=== PATIENT | male | born 1970 | race Caucasian/White ===

== ENCOUNTER 2016-05-12 23:40 | Emergency (ER) | payer OTHER ==
[2016-05-12 23:47] VITALS: BMI 41.4
--- NOTE | 2016-05-13 00:33 | DIRPT ---
CLINICAL DATA: Acute onset of congestion and shortness of breath. Initial encounter. EXAM: CHEST 2 VIEW COMPARISON: Chest radiograph performed 05/04/2013 FINDINGS: The lungs are well-aerated. Mild bibasilar atelectasis is noted. There is no evidence of pleural effusion or pneumothorax. The heart is borderline normal in size. No acute osseous abnormalities are seen. IMPRESSION: Mild bibasilar atelectasis noted. Lungs otherwise clear. Electronically Signed By: Estrada Zavala M.D. On: 05/13/2016 00:31
[2016-05-13] MEDS ORDERED: ASPIRIN 325 MG TAB PO ONE (01:16)
--- NOTE | 2016-05-13 01:18 | EDPRACDOC ---
- General Information Chief Complaint: Dyspnea/Resp distress Stated Complaint: SHOB Time Seen by Provider: 05/13/16 01:11 Information Source: Patient Home Medications: Home Medications Aspirin (OrangeEnteric Coated) [Ecotrin] 325 mg PO DAILY PRN 05/04/13 Atenolol [Tenormin] 25 mg PO DAILY 05/04/13 Nitroglycerin [Nitrostat] 0.4 mg SL Q5M PRN 05/04/13 Amoxicillin/Potassium Clav [Augmentin 875-125 Tablet] 1 each PO BID #20 tablet 05/13/16 Allergies/Adverse Reactions: Allergies Allergy/AdvReac Type Severity Reaction Status Date / Time No Known Allergies Allergy Verified 05/12/16 23:47 - History of Present Illness HPI: PATIENT STATES HE FEELS SOB SINCE THIS EVENING. NO HX OF ASTHMA. NO COUGH. FEELS LIKE AIR CANNOT REACH HIS LUNGS. WORSE LYING FLAT. DENIES CHEST PAIN. NO PRIOR MS. Shortness of Breath: Mild Relevant History: Reports: Other (SLEEP APNEA) Ear Symptoms: Reports: None SOB Worsens with: Reports: Lying Flat SOB Improves with: Reports: Nothing Associated Signs and symptoms: Reports: Nasal Symptoms ED Past Medical History - History Reviewed Yes Nurses notes reviewed and agree except as marked Travel Outside of [place] in the Last 3 Months?: No - Patient Medical History Cardiac History: Reports: Hypertension Psychological History: Denies: Depression - Social Medical History Smoking Status: Never smoker ETOH: None Substance Abuse: None Lives With: Family Lives In: Home EDM Review of Systems - Review of Systems ROS Negative Except as Marked: Yes All systems reviewed and were negative except as marked Constitutional: No Symptoms Reported. negative: Fever, Chills, Weakness, Fatigue, Loss of Appetite Eyes: No Symptoms Reported. negative: Redness, Blurred Vision, Double Vision, Discharge, Pain, Light Sensitive, Photophobia Ears: No Symptoms Reported. negative: Pain, Hearing Loss, Drainage, Ear Pulling Throat: No Symptoms Reported. negative: Pain, Swelling Nose: No Symptoms Reported. negative: Congestion, Bleeding, Discharge, Injection, Swelling, Deformity, Ecchymosis, Tender, Abrasion, Laceration Mouth: No Symptoms Reported. negative: Pain, Drooling Respiratory: Shortness of Breath. negative: Barky Cough, Brassy Cough, Cough, Hemoptysis, Wheezing Cardiovascular: No Symptoms Reported. negative: Chest Pain, Palpitations, Syncope, Edema, Orthopnea, PND, Skin Mottling, Cyanosis Gastrointestinal: No Symptoms Reported. negative: Pain, Constipation, Nausea, Vomiting, Diarrhea, Melena, Formula Intolerance Genitourinary: No Symptoms Reported. negative: Dysuria, Hematuria, Frequency, Discharge, Bleeding, Testicular Pain, Neurological: No Symptoms Reported. negative: Headache, Dizziness, Seizure, Numbness, Weakness, Speech Difficulty, Gait Difficulty Musculoskeletal: No Symptoms Reported. negative: Neck, Chestwall, Ribs, Back, Shoulder, Arm, Elbow, Forearm, Wrist, Hand, Pelvis, Hip, Femur, Knee, Leg, Ankle , Foot Integumentary: No Symptoms Reported. negative: Itching, Rash, Bruising, Wound Allergic/Immunologic: No Symptoms Reported. negative: Hives, Itching Hematologic: No Symptoms Reported. negative: Lymphadenopathy, Easy Bruising, Easy Bleeding Endocrine: No Symptoms Reported. negative: Weight Gain, Weight Loss Psychiatric: No Symptoms Reported. negative: Anxiety, Depression, Hallucinations, Insomnia, Suicidal - Physical Exam Constitutional: Alert (Awake), No apparent distress Oriented to: Time, Person, Place Last recorded Vital Signs: Last Vital Signs Temp 97.6 F 05/12/16 23:43 Pulse 89 05/12/16 23:43 Resp 20 05/12/16 23:43 BP 154/88 05/12/16 23:43 Pulse Ox 96 05/12/16 23:43 Oxygen Pulse Oxygen Saturation 96 O2 Device Room Air Oxygen Flow Rate Fraction of Inspired Oxygen ( FIO2) - HEENT Head: Normal ( normocephalic) Eye Exam: Normal (PERRL, EOMI, Sclera white) Oropharynx: Normal (Pharynx:Moist without exudate,Gums-no swelling) Tympanic Membrane: Normal ENT EAC: Normal TMJ: Normal Nose: No Symptoms Reported (septum midline) Neck: Normal (FROM, trachea at midline) - Respiratory/Cardiovascular Respiratory: Normal - CTA (BBS clear to auscultation without adventitious sounds ) Cardiovascular: Normal (RRR without murmur, gallop or rub) - GI Auscultation: Normal (NABS) Palpation: Normal (Soft,No rebound or guarding, non distended) Tenderness: Non tender Cardozo's Sign: Negative - Musculoskeletal Back: Normal (Non-Tender) Extremities: Normal (Normal tone, Pulses 2+ No cyanosis or edema, FROM) - Integumentary Skin: Normal, Warm, Dry Lymphatics: Normal (no adenopathy) - Neurologic Memory Impaired: Normal Motor Function: Normal (Normal tone, Pulses 2+ No cyanosis or edema, FROM) Cranial Nerve: Normal (CN II-X11 intact sensation, strength 5/5) Cerebellar: Normal Mood Description: Normal Perception: Normal ED SOB MDM - Results Result Diagrams: 05/13/16 01:40 05/13/16 01:40 - EKG EKG #1 EKG Time: 01:26 -: Yes EKG interpreted by me Rate: bpm: 88 [place]: Normal Rhythm: NSR Block: None Hypertrophy: None ST: Normal Decision Time to Discharge: 03:29 - Departure Yes I personally saw and evaluated the patient. Disposition: Home Condition: Good Final Diagnosis: Sinusitis Qualifiers: Sinusitis location: maxillary Chronicity: acute Recurrence: non-recurrent Qualified Code(s): J01.00 - Acute maxillary sinusitis, unspecified Instructions: Sinusitis (ED) Education/Counseling Given To: Patient Education/Counseling Given Regarding: Diagnosis, Treatment, Prognosis, Follow Up Referrals: None,No Provider [Primary Care Provider] - One Week Dread Goodson MD [Staff Physician] - One Week Prescriptions: Amoxicillin/Potassium Clav [Augmentin 875-125 Tablet] 1 each PO BID #20 tablet
[2016-05-13] MEDS ORDERED: ALBUTEROL 6.7 GM MDI INH ONE (01:28)
[2016-05-13 02:03] LABS: AUTOMATED EOSINOPHIL 1.8 % (0-5); AUTOMATED LYMPH 30.6 % (17-44); AUTOMATED MONOCYTE 7.6 % (3-10); MPV 8.3 fL (7.4-10.4)
[2016-05-13 02:11] LABS: BLOOD UREA NITROGEN 25 MG/DL (9-20); CALCULATED OSMOLALITY 271 MOs/Kg (270-290); CHLORIDE 100 mEq/L (98-107); GLUCOSE 112 MG/DL (70-99); SODIUM LEVEL 138 mEq/L (137-146); TOTAL PROTEIN 7.9 G/DL (6.3-8.2)
[2016-05-13 02:15] LABS: PARTIAL THROMB. TIME 27.5 SEC (22-35)
--- NOTE | 2016-05-13 03:23 | DIRPT ---
CLINICAL DATA: 45-year-old male with headache EXAM: CT HEAD WITHOUT CONTRAST TECHNIQUE: Contiguous axial images were obtained from the base of the skull through the vertex without intravenous contrast. COMPARISON: None. FINDINGS: The ventricles and the sulci are appropriate in size for the patient's age. There is no intracranial hemorrhage. No midline shift or mass effect identified. The louis-white matter differentiation is preserved. Partially visualized partial opacification of the right maxillary sinus. The remainder of the paranasal sinuses the mastoid air cells are well aerated. The calvarium is intact. IMPRESSION: No acute intracranial pathology. Electronically Signed By: Karan Larson M.D. On: 05/13/2016 03:20
[2016-05-13 03:46] VITALS: BP 130/70; PULSE 90; TEMP 97.9
== END 2016-05-13 03:45 | disposition home or self-care (01) ==
LOC: ED 23:40
DX: J01.00 Acute maxillary sinusitis, unspecified (principal); R51 Headache
CPT/HCPCS: 36415; 70450; 71020; 80053; 83880; 84484; 85025; 85379; 85610; 85730; 93005; 94640; 99283; J3490